=== PATIENT | male | born 1975 | race Two or more races ===

== ENCOUNTER 2019-02-10 07:37 | Emergency (ER) | payer OTHER ==
[~2019-02-10] VITALS: Ht 165.1 cm; Wt 81.6 kg
[2019-02-10 07:48] VITALS: BP 142/86
[2019-02-10] MEDS ORDERED: IBUPROFEN 400 MG TABLET. PO ONE (08:30)
[2019-02-10] MEDS ORDERED: DIPHTH,PERTUSS(ACELL),TET TOX 0.5 ML DISP.SYRIN. VAX IM ONE (08:30)
--- NOTE | 2019-02-10 08:41 | PHYS DOC ---
Past Medical History Past Medical History: Diabetes-Type II, ME Past Surgical History: Other Additional Past Surgical Histo: CARDIAC STENT Alcohol Use: None Drug Use: None Adult General Chief Complaint Chief Complaint: LACERATION/AVULSION HPI HPI Patient is a 43 year old left-handed male who presents with complaint of injury to left thumb. Patient states he was working on his trunk and his thumb stuck in the belt of his trunk this morning. Patient denies other injuries and rated his pain 9 or 10 over 10. Patient is not up-to-date with tetanus immunization. Review of Systems Review of Systems Constitutional: Denies fever or chills [] Eyes: Denies change in visual acuity, redness, or eye pain [] HENT: Denies nasal congestion or sore throat [] Respiratory: Denies cough or shortness of breath [] Cardiovascular: No additional information not addressed in HPI [] GI: Denies abdominal pain, nausea, vomiting, bloody stools or diarrhea [] : Denies dysuria or hematuria [] Musculoskeletal: Denies back pain, reports joint pain [] Integument: Denies rash or skin lesions [] Neurologic: Denies headache, focal weakness or sensory changes [] Endocrine: Denies polyuria or polydipsia [] All other systems were reviewed and found to be within normal limits, except as documented in this note. Current Medications Current Medications Current Medications Medications (Trade) Dose Ordered Sig/Micaela Start Time Stop Time Status Last Admin Dose Admin Diphtheria/ Tetanus/Acell Pertussis (Boostrix) 0.5 ml ONCE ONCE 02/10/19 08:30 02/10/19 08:31 DC 02/10/19 08:42 0.5 ML Ibuprofen (Motrin) 800 mg 1X ONCE 02/10/19 08:30 02/10/19 08:31 DC 02/10/19 08:41 800 MG Lidocaine HCl (Lidocaine 1% 20ml Vial) 20 ml 1X ONCE 02/10/19 09:30 02/10/19 09:31 DC 02/10/19 09:39 20 ML Allergies Allergies Allergies Coded Allergies Type Severity Reaction Last Updated Verified No Known Drug Allergies 02/10/19 No Physical Exam Physical Exam Constitutional: Well developed, well nourished, mild distress, non-toxic appearance. [] HENT: Normocephalic, atraumatic. Eyes: PERRLA, EOMI, conjunctiva normal, no discharge. [] Neck: Normal range of motion, no tenderness, supple, no stridor. [] Cardiovascular:Heart rate regular rhythm, no murmur [] Lungs & Thorax: Bilateral breath sounds clear to auscultation [] Extremities: Left thumb with amputation of tip of finger with mild tenderness, no cyanosis, no clubbing, ROM intact, no edema. [] Neurologic: Alert and oriented X 3, no focal deficits noted. [] Psychologic: Affect normal, judgement normal, mood normal. [] Current Patient Data Vital Signs Vital Signs Date Time Temp Pulse Resp B/P (MAP) Pulse Ox O2 Delivery O2 Flow Rate FiO2 02/10/19 07:48 98.0 100 16 142/86 (104) 98 Room Air 98.0 Lab Values Laboratory Tests Test 02/10/19 08:52 Glucose (Fingerstick) 166 mg/dL (70-99) H EKG EKG [] Radiology/Procedures Radiology/Procedures [][facility] [address] [place], [place] [id number] IMAGING REPORT Signed PATIENT: MARGARET GARRETT ACCOUNT: [id number] : 1975 LOCATION: ER AGE: 43 SEX: M EXAM STATUS: REG ER ORD. PHYSICIAN: JAKE LOPEZ MD REASON: left thumb injury PROCEDURE: FINGER(S) LEFT Study: FINGER(S) LEFT Indication: Thumb injury. Comparison: None. Findings: Traumatic amputation at the tuft of the thumb distal phalanx with partial absence and irregularity of the overlying soft tissues and surrounding small displaced bony fragments. Radiodensity at the tip of the remaining distal phalanx could represent retained debris or possibly bandaging material. No fracture seen elsewhere. Impression: Traumatic amputation involving the tuft of the thumb distal phalanx with several adjacent small displaced osseous fragments. Debris versus bandaging material within the overlying soft tissue defect. Electronically signed by: LUIS MIGUEL CEBALLOS MD (02/10/2019 8:53 AM) [facility] DICTATED and SIGNED BY: LUIS MIGUEL CEBALLOS MD DATE: 02/10/19 0853 Course & Med Decision Making Course & Med Decision Making Pertinent Imaging studies reviewed. (See chart for details) The patient in ER showed 42-year-old male patient with traumatic amputation involving the tuft of the thumb distal phalanx. Patient had tetanus immunization in ER but eloped without signing AMA before having further treatment for his wound. Dragon Disclaimer Dragon Disclaimer This electronic medical record was generated, in whole or in part, using a voice recognition dictation system. Departure Departure Impression: Primary Impression: Amputation of thumb, left Additional Impression: Open fracture Disposition: 07 AGAINST MEDICAL ADVICE (Eloped) Condition: STABLE Referrals: NO PCP (PCP) Problem Qualifiers Primary Impression: Amputation of thumb, left Encounter type: initial encounter Qualified Codes: S68.012A - Complete traumatic metacarpophalangeal amputation of left thumb, initial encounter JAKE LOPEZ MD Feb 10, 2019 08:41
--- NOTE | 2019-02-10 08:56 | RAD ---
Study: FINGER(S) LEFT Indication: Thumb injury. Comparison: None. Findings: Traumatic amputation at the tuft of the thumb distal phalanx with partial absence and irregularity of the overlying soft tissues and surrounding small displaced bony fragments. Radiodensity at the tip of the remaining distal phalanx could represent retained debris or possibly bandaging material. No fracture seen elsewhere. Impression: Traumatic amputation involving the tuft of the thumb distal phalanx with several adjacent small displaced osseous fragments. Debris versus bandaging material within the overlying soft tissue defect. Electronically signed by: LUIS MIGUEL CEBALLOS MD (02/10/2019 8:53 AM) [facility] [place]
[2019-02-10] MEDS ORDERED: LIDOCAINE 1% Multi-Dose 20 ML VIAL. INJ ONE (09:30)
== END 2019-02-10 10:28 | disposition left against medical advice (07) ==
LOC: ER 07:37
DX: S62.522A Displaced fracture of distal phalanx of left thumb, initial encounter for closed fracture (principal); E11.9 Type 2 diabetes mellitus without complications; I25.2 Old myocardial infarction; Z95.5 Presence of coronary angioplasty implant and graft; W23.0XXA Caught, crushed, jammed, or pinched between moving objects, initial encounter; Y93.89 Activity, other specified; Y92.69 Other specified industrial and construction area as the place of occurrence of the external cause; Y99.0 Civilian activity done for income or pay
CPT/HCPCS: 73140; 82962; 90471; 90715; 96372; 99285-25